=== PATIENT | female | born 1955 | race American Indian/Alaskan Native ===

== ENCOUNTER 2016-06-13 11:58 | Outpatient (CLI) | payer BC ==
--- NOTE | 2016-06-13 15:09 | XRay Report ---
ABDOMEN RADIOGRAPH INDICATION: Generalized abdominal pain. COMPARISON: 01/16/2012 FINDINGS: Frontal abdominal radiograph demonstrates overall nonobstructive bowel gas pattern with mild stool throughout the colon and some in the rectosigmoid. Air containing bowel in the left hemiabdomen again measures up to 5.2 cm caliber. No definite focal suspicious calcifications, pneumatosis or pneumoperitoneum. Clear visualized lung bases. Possible osteopenia and mild curvature/possible scoliosis. Osteitis pubis condensans. Few pelvic surgical clips again noted. CONCLUSION: No significant acute radiographic abnormality or interval change, as detailed above. Thank you for the opportunity to participate in this patient's care.
== END 2016-06-13 11:59 | disposition home or self-care (01) ==
LOC: SPVIMAG 11:58
DX: M85.38 Osteitis condensans, other site (principal)
CPT/HCPCS: 74000

== ENCOUNTER 2016-10-31 10:40 | Outpatient (CLI) | payer BC ==
--- NOTE | 2016-10-31 15:11 | Mammography Report ---
Bilateral mammogram: Compared to 09/05/14. CAD study utilized. Findings: Predominance adipose tissue bilaterally. Asymmetric density left breast without significant interval change. Benign axillary nodes. No microcalcification. Impression: Benign findings. Annual followup recommended. BI-RADS CATEGORY: 2 = Benign ACR BI-RADS MAMMOGRAPHIC CODES: 0 = Needs additional imaging evaluation; 1 = Negative; 2 = Benign; 3 = Probably benign; 4 = Suspicious; 5 = Malignant; 6 = Known biopsy-proven malignancy COMMENT: 1. Dense breast tissue, i.e., adenosis, fibrocystic changes, etc., may obscure an underlying neoplasm. 2. Approximately 10% of cancers are not detected with mammography. 3. A negative mammography report should not delay biopsy if a clinically suspicious mass is present. COMMENT: Patient follow-up letters are generated in [employer].
--- NOTE | 2016-11-01 13:20 | Vascular Lab Report ---
LOWER EXTREMITY VENOUS DUPLEX: REASON FOR EXAM: Swelling of the lower extremities. COMMENTS ON THE RIGHT: All veins visualized are freely compressible without evidence of internal echogenicity. Flow is spontaneous and phasic throughout. COMMENTS ON THE LEFT: All veins visualized are freely compressible without evidence of internal echogenicity. Flow is spontaneous and phasic throughout. IMPRESSION: No evidence of acute or chronic deep venous thrombosis in either lower extremity.
== END 2016-10-31 10:41 | disposition home or self-care (01) ==
LOC: SPVWC 10:40
DX: Z12.31 Encounter for screening mammogram for malignant neoplasm of breast (principal); R60.0 Localized edema
CPT/HCPCS: 93970; G0202; 77067